=== PATIENT | female | born 2000 | race Two or more races ===

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

== ENCOUNTER 2022-12-12 19:54 | Outpatient (CLI) | payer OTHER | END 2022-12-13 11:42 | disposition home or self-care (01) | LOC: OBS/DEL 19:54 | PROVIDERS: ATTEND Student in an Organized Health Care Education/Training Program | DX: O47.03 False labor before 37 completed weeks of gestation, third trimester (principal); Z3A.38 38 weeks gestation of pregnancy; Z91.018 Allergy to other foods ==